=== PATIENT | male | born 1995 | race Native Hawaiian/Other Pacific Islander ===

== ENCOUNTER 2017-07-13 18:03 | Emergency (ER) | payer SELFPAY ==
[~2017-07-13] VITALS: Ht 182.9 cm; Wt 155.6 kg
[~2017-07-13 18:03] MED LIST: AMOXICILLIN500 MG PO; AZITHROMYCIN500 MG PO; CEPHALEXIN500 MG PO; DESLORATADINE5 MG PO; GLUCOPHAGE850 MG PO; GUAIATUSSIN AC10 ML PO; IBUPROFEN600 MG PO; KEFLEX500 MG PO; LEVAQUIN500 MG PO; LISINOPRIL10 MG PO; LISINOPRIL20 MG PO; METFORMIN HCL500 MG PO; MONTELUKAST SOD10 MG PO; PREDNISONE20 MG PO; SERTRALINE HCL25 MG PO; SERTRALINE HCL50 MG PO; TESSALON PERLE100 MG PO; TRAMADOL HCL50 MG PO; ZOFRAN ODT4 MG PO; ZOFRAN ODT4 MG SL
== END 2017-07-13 18:15 | disposition home or self-care (01) ==
LOC: ED 18:03
DX: J02.9 Acute pharyngitis, unspecified (principal); R11.0 Nausea

== ENCOUNTER 2018-03-21 11:50 | Emergency (ER) | payer OTHER ==
[~2018-03-21] VITALS: Ht 182.9 cm; Wt 165.6 kg
== END 2018-03-21 12:07 | disposition home or self-care (01) ==
LOC: ED 11:50
DX: M79.674 Pain in right toe(s) (principal)

== ENCOUNTER 2019-03-17 07:57 | Emergency (ER) | payer BC ==
[~2019-03-17] VITALS: Ht 180.3 cm; Wt 219.1 kg
[2019-03-17] MEDS ORDERED: VENTOLIN HFA18 GM INH (08:27)
[2019-03-17] MEDS ORDERED: ONDANSETRON ODT8 MG PO (08:27)
== END 2019-03-17 08:34 | disposition home or self-care (01) ==
LOC: ED 07:57
DX: J06.9 Acute upper respiratory infection, unspecified (principal); J40 Bronchitis, not specified as acute or chronic; I10 Essential (primary) hypertension; F32.9 Major depressive disorder, single episode, unspecified; E66.9 Obesity, unspecified; Z79.84 Long term (current) use of oral hypoglycemic drugs; Z79.899 Other long term (current) drug therapy
CPT/HCPCS: 99283

== ENCOUNTER 2019-03-19 00:31 | Emergency (ER) | payer BC ==
[~2019-03-19] VITALS: Ht 180.3 cm; Wt 219.5 kg
[~2019-03-19 00:31] MED LIST changes: +ONDANSETRON ODT8 MG PO; +VENTOLIN HFA18 GM INH
--- OUTSIDE RECORDS SUMMARY | 2019-03-19 00:34 | XMS ---
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 Ghulam has no Care Guidelines for this patient. Sasha VISIT COUNT (12 MO.) 3 [facility] TOTAL 3 NOTE: Visits indicate total known visits. ED/C VISIT TRACKING (12 MO.) 03/19/2019 00:32 [facility] TYPE: Emergency COMPLAINT: - COUGH/SOB 03/17/2019 07:59 [facility] TYPE: Emergency COMPLAINT: - SORE THROAT, FLU SYMPTOMS 03/21/2018 11:50 [facility] TYPE: Emergency COMPLAINT: - TOE PAIN NON INJURY DIAGNOSES: - Pain in right toe(s) INPATIENT VISIT TRACKING (12 MO.) No inpatient visits to display in this time frame [email or web address]
[2019-03-19] MEDS ORDERED: LISINOPRIL20 MG PO (00:45)
[2019-03-19] MEDS ORDERED: ZITHROMAX250 MG PO (00:45)
== END 2019-03-19 02:43 | disposition home or self-care (01) ==
LOC: ED 00:31
DX: J06.9 Acute upper respiratory infection, unspecified (principal); R04.2 Hemoptysis; I10 Essential (primary) hypertension; F32.9 Major depressive disorder, single episode, unspecified; E66.9 Obesity, unspecified
CPT/HCPCS: 71046; 99283-25

== ENCOUNTER 2021-05-08 11:42 | Emergency (ER) | payer OTHER ==
[~2021-05-08] VITALS: Ht 180.3 cm; Wt 192.8 kg
[~2021-05-08 11:42] MED LIST changes: +ZITHROMAX250 MG PO
[2021-05-08] MEDS ORDERED: CLEOCIN HCL300 MG PO (11:59)
[2021-05-08] MEDS ORDERED: IBU600 MG PO (11:59)
== END 2021-05-08 12:10 | disposition home or self-care (01) ==
LOC: ED 11:42
DX: L60.0 Ingrowing nail (principal); J45.909 Unspecified asthma, uncomplicated; I10 Essential (primary) hypertension; R73.03 Prediabetes; E66.01 Morbid (severe) obesity due to excess calories; Z79.899 Other long term (current) drug therapy
CPT/HCPCS: 99283

== ENCOUNTER 2022-05-19 20:04 | Emergency (ER) | payer OTHER ==
[~2022-05-19] VITALS: Ht 180.3 cm; Wt 242.0 kg
[~2022-05-19 20:04] MED LIST changes: +CLEOCIN HCL300 MG PO; +IBU600 MG PO
== END 2022-05-19 21:35 | disposition home or self-care (01) ==
LOC: ED 20:04
DX: S90.121A Contusion of right lesser toe(s) without damage to nail, initial encounter (principal); E66.01 Morbid (severe) obesity due to excess calories; W22.8XXA Striking against or struck by other objects, initial encounter; I10 Essential (primary) hypertension; Z79.899 Other long term (current) drug therapy
CPT/HCPCS: 73660; 99283-25; A9270